=== PATIENT | female | born 1965 | race Caucasian/White ===

== ENCOUNTER 2019-09-22 06:50 | Day surgery (SDC) | payer OTHER ==
[2019-09-22] MEDS ORDERED: Ondansetron INJ* 2 MG/ML VIAL IV PRN (07:43)
[2019-09-22] MEDS ORDERED: Metoclopramide IV* 5 MG/ML 2 ML VIAL IV PRN (07:43)
[2019-09-22] MEDS ORDERED: Naloxone* 0.4 MG/ML 1 ML VIAL IV PRN (07:43)
[2019-09-22] MEDS ORDERED: Buffered Lidocaine 1% SYRIN* 1 ML/SYRINGE INTRADERM ONE (07:53)
[2019-09-22] MEDS ORDERED: ceFAZolin 2 GM in NS PREMIX(*) 2 GM/100 ML BAG IVPB ONE (07:53)
[2019-09-22] MEDS ORDERED: Bupivacaine 0.25% SDV PF* 10 ML VIAL INJ ONE (08:52)
[2019-09-22] MEDS ORDERED: Propofol* 10 MG/ML 20 ML BTL ONE (09:03)
[2019-09-22] MEDS ORDERED: HYDROmorphone INJ1* 1 MG/ML SYRINGE ONE ×2 (09:03→11:00)
[2019-09-22] MEDS ORDERED: Dexamethasone IV* 4 MG/ML 1 ML (4 MG) ONE (10:23)
[2019-09-22] MEDS ORDERED: Ondansetron INJ* 2 MG/ML VIAL ONE (10:23)
[2019-09-22] MEDS: HYDROmorphone INJ1* 1 MG/ML SYRINGE IV PRN ×2 (11:01→11:27)
[2019-09-22 11:34] VITALS: BP 132/92
--- NOTE | 2019-09-23 00:05 | OP ---
DATE OF OPERATION: 09/22/19 - [facility] DATE OF : 65 SURGEON: Jas Angel MD SUPERVISOR CELLARS: ARLENE Franco ANESTHESIOLOGIST: Dr. Ac. ANESTHESIA: General. 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 OPERATIVE PROCEDURE: Left thumb metacarpophalangeal joint arthrodesis with autogenous distal radius bone graft. INDICATIONS: Ms. Bella has very unstable MCP joint. It is arthritic and painful. We talked about treatment options. She understands she may develop in the future some pain at the CMC joint. She understands this and wishes to proceed with surgery. ESTIMATED BLOOD LOSS: 2 mL. COMPLICATIONS: None. FINDINGS: See above and below. DESCRIPTION OF PROCEDURE: Ms. Bella was seen in the preoperative holding area. The correct site, side, and procedure were identified. We came back to the operating room where the arm was prepped and draped in the usual fashion and a time- out was performed. The arm was exsanguinated and the tourniquet inflated. I made a longitudinal incision over the dorsum of the MCP joint. Dissection was carried down. The tendon was split longitudinally utilizing the interval between the EPL and the EPB tendons. The capsule was opened up. The collateral ligaments were released. The joint was opened up. I placed a guidewire in the center position for the Acumed reamer and then first the metacarpal head was reamed and then any bony edges around the outside were removed with a rongeur. I then in a similar fashion reamed the proximal phalanx. I then apposed the 2 surfaces. Things were looking very good. I then placed the guidewire for a standard Acutrak screw longitudinally in antegrade fashion. This was confirmed on mini C-arm fluoroscopy. The alignment of the thumb looked very nice. I did want to pack some bone graft and so I went ahead and made a 2 cm incision just proximal to the Avril's tubercle over the dorsum of the distal radius. Subperiosteal flaps were raised. Dorsal corticotomy was performed and a cortical window was opened up. I curetted out the cancellous bone that was packed into the fusion site. Once I done that, I drilled and then placed the longest standard Acutrak screw I had, which was a 30. This generated excellent compression at the fusion site. The wound was then irrigated out. The capsule was then closed with 4-0 PDS suture. Tendon was repaired with 4-0 PDS suture. Skin was closed with 4-0 nylon. 0.25% Marcaine was infiltrated and she was placed in a very nice fitting thumb spica splint all the way out to the tip of the thumb. Tourniquet was deflated and she was taken to the recovery room in stable condition. [id number]/[facility] #: [id number] [place]
== END 2019-09-22 11:57 | disposition home or self-care (01) ==
LOC: OR 06:50
PROVIDERS: ATTEND Orthopaedic Surgery Hand Surgery
DX: M25.342 Other instability, left hand (principal); S63.642A Sprain of metacarpophalangeal joint of left thumb, initial encounter; M18.32 Unilateral post-traumatic osteoarthritis of first carpometacarpal joint, left hand; X58.XXXA Exposure to other specified factors, initial encounter; Y92.9 Unspecified place or not applicable; Y99.0 Civilian activity done for income or pay; I10 Essential (primary) hypertension; K21.9 Gastro-esophageal reflux disease without esophagitis; Z87.891 Personal history of nicotine dependence
CPT/HCPCS: 76000; C1713; C1769; J0690; J1100; J1170; J2405; J2704; J3490